=== PATIENT | male | born 1985 | race Caucasian/White ===

== ENCOUNTER 2016-06-10 15:26 | Emergency (ER) | payer MEDICARE, MEDICAID ==
--- NOTE | 2016-06-10 15:51 | EDDOCDS ---
Physician Documentation [facility] Name: Constantine Arce Age: 30 yrs Sex: Male : 1985 Arrival Date: 06/10/2016 Time: 15:26 Bed PD Private MD: Disposition: 06/10/16 15:40 Discharged to Home/Self Care. Impression: Dental caries, Jaw pain. - Condition is Stable. - Discharge Instructions: Dental Pain. - Prescriptions for Augmentin 875- 125 mg Oral Tablet - take 1 tablet by ORAL route every 12 hours for 10 days; 20 tablet. Ibuprofen 800 mg Oral Tablet - take 1 tablet by ORAL route every 8 hours As needed take with food; 30 tablet. - Medication Reconciliation, Local Pharmacy Hours, Dental Referral List form. - Follow up: Private Physician; When: Call to arrange an appointment; Reason: Recheck today's complaints. Follow up: Emergency Department; When: As needed; Reason: Fever > 102F, Trouble breathing, Worsening of conditions. - Problem is new. - Symptoms are unchanged. Historical: - Allergies: no known allergies; - Home Meds: 1. Adderall XR 30 mg Oral cp24 1 cap once daily 2. gabapentin 300 mg Oral tab four times a day 3. Methadone Oral once daily - PMHx: ADHD; - PSHx: none; - Social history: Smoking status: Patient states former smoker of tobacco. No barriers to communication noted, The patient speaks fluent Australian, Speaks appropriately for age. - Family history: Not pertinent. - : The pt / caregiver states he / she is not on anticoagulants. Home medication list is obtained from the patient. - Exposure Risk Screening:: None identified. Vital Signs: 06/10 15:28 BP 149 / 64; Pulse 60; Resp 16; Temp 98.3(O); Pulse Ox 97% on R/A; Weight 74.84 kg / lr2 164.99 lbs (R); Height 5 ft. 11 in. (180.34 cm) (R); Pain 6/10; 15:28 Body Mass Index 23.01 (74.84 kg, 180.34 cm) lr2 MDM: 15:44 [facility] Payment Agreement was scanned into [employer] and attached to record. jp5 15:44 Financial registration complete. jp5 Signatures: Lucas Ho RN RN mlb1 Becki Adams,RN RN jo3 Fidel Gallardo, PASamC PAVel Patel jp5 The chart was reviewed and I authenticate all verbal orders and agree with the evaluation and treatment provided.Attachments: 15:44 [facility] Payment Agreement jp5 MTDD
--- NOTE | 2016-06-10 15:51 | EDDOCDS ---
Nurse's Notes [facility] Name: Constantine Arce Age: 30 yrs Sex: Male : 1985 Arrival Date: 06/10/2016 Time: 15:26 Bed PD Private MD: Diagnosis: Dental caries;Jaw pain Presentation: 06/10 15:29 Presenting complaint: Patient states: Right jaw pain radiating to right ear began a mlb1 week ago. Adult Sepsis Screening: The patient does not have new or worsening altered mentation. Patient's respiratory rate is less than 22. Systolic blood pressure is greater than 100. Patient has a qSOFA score of 0- Negative Sepsis Screen. Suicide/Homicide risk assessment- the patient denies having any suicidal and/or homicidal ideations and does not present with any other emotional, behavioral or mental health complaints. Status: Patient is not a in shop service technician or dependent. Transition of care: patient was not received from another setting of care. 15:29 Acuity: TEE Level 4 mlb1 15:29 Method Of Arrival: Walkin/Carried/Asstd mlb1 Triage Assessment: 15:31 General: Appears in no apparent distress, Behavior is appropriate for age, cooperative. mlb1 Pain: Location: right ear and right jaw Pain currently is 7 out of 10 on a pain scale. HIV screening NA for this visit Offered previously. Historical: - Allergies: no known allergies; - Home Meds: 1. Adderall XR 30 mg Oral cp24 1 cap once daily 2. gabapentin 300 mg Oral tab four times a day 3. Methadone Oral once daily - PMHx: ADHD; - PSHx: none; - Social history: Smoking status: Patient states former smoker of tobacco. No barriers to communication noted, The patient speaks fluent Turkish, Speaks appropriately for age. - Family history: Not pertinent. - : The pt / caregiver states he / she is not on anticoagulants. Home medication list is obtained from the patient. - Exposure Risk Screening:: None identified. Screenin:49 Screening information is obtained from the patient. Fall risk: No risks identified. jo3 Assistance ADL's: requires no assistance with activities of daily living. Abuse/DV Screen: The patient / caregiver reports he/she is: not in a situation that causes fear, pain or injury. Nutritional screening: No deficits noted. Advance Directives: There is no active DNR order. home support is adequate. Assessment: 15:49 General: Appears in no apparent distress, comfortable, Behavior is appropriate for age, jo3 cooperative. General: Pt disclosed to this typewriter assembly and parts inspector that he is on methadone at a clinic and does not want to get in trouble and asked that Ultram be cancelled. Advised provider . Neurological: No deficits noted. Level of Consciousness is awake, alert, Oriented to person, place, time. Cardiovascular: No deficits noted. Respiratory: No deficits noted. Airway is patent Respiratory effort is even, unlabored. Derm: Skin is pink, warm & dry. Vital Signs: 15:28 BP 149 / 64; Pulse 60; Resp 16; Temp 98.3(O); Pulse Ox 97% on R/A; Weight 74.84 kg (R); lr2 Height 5 ft. 11 in. (180.34 cm) (R); Pain 6/10; 15:28 Body Mass Index 23.01 (74.84 kg, 180.34 cm) lr2 Vitals: 15:28 Log In Time: June 10, 2016 at 15:26. lr2 ED Course: 15:28 Patient visited by Aide Heath. lr2 15:28 Patient moved to Waiting lr2 15:28 Patient moved to Pre RCE lr2 15:29 Patient visited by Lucas Ho RN. mlb1 15:30 Triage Initiated mlb1 15:33 Fidel Gallardo [facility]-C [facility]. ar2 15:33 Urban Mendoza MD is Attending Physician. ar2 15:34 Patient visited by Fidel Gallardo PA-C. ar2 15:34 Patient moved to jb5 15:44 [facility] Payment Agreement was scanned into [employer] and attached to record. jp5 15:46 Patient name changed from Constantine\S\R\S\Cranker\S\ to Constantine\S\Julien\S\Cranker. EDMS 15:49 The patient / caregiver is instructed regarding the plan of care and ED course. jo3 15:49 No IV's were initiated during this patient's visit. No procedures done that require jo3 assistance. Order Results: There are currently no results for this order. Outcome: 15:40 Discharge ordered by Provider. ar2 15:49 Discharge Assessment: Patient awake, alert and oriented x 3. No cognitive and/or jo3 functional deficits noted. Patient verbalized understanding of disposition instructions. patient administered narcotics - no. The following High Risk Discharge criteria are identified: None. Discharged to home ambulatory. Condition: stable. Discharge instructions given to patient, Instructed on discharge instructions, follow up and referral plans. medication usage, Demonstrated understanding of instructions, medications, Pt was receptive of discharge instructions/ teaching. Prescriptions given X 2. No special radiology studies were completed. Property sent home with patient. 15:51 Patient left the ED. jo3 Signatures: Dispatcher [employer] EDMS Lucas oH RN RN mlb1 Zunilda Iniguez, CAMERA REPAIR TECHNICIAN CAMERA REPAIR TECHNICIAN jb5 Becki AdamsRN RN jo3 Fidel Gallardo PA-C PA-C ar2 Price, Jennalee jp5 Ross, Laura lr2 Corrections: (The following items were deleted from the chart) 15:32 15:28 BP 149 / ???; Pulse 64bpm; Resp 16bpm; Pulse Ox 97% RA; Temp 98.3F Oral; 74.84 kg lr2 Reported; Height 5 ft. 11 in. Reported; BMI: 23.0; Pain 6/10; lr2 MTDD
--- NOTE | 2016-06-12 16:52 | EDDOCDS ---
Physician Documentation [facility] Name: Constantine Arce Age: 30 yrs Sex: Male : 1985 Arrival Date: 06/10/2016 Time: 15:26 Bed PD Private MD: Disposition: 06/10/16 15:40 Discharged to Home/Self Care. Impression: Dental caries, Jaw pain. - Condition is Stable. - Discharge Instructions: Dental Pain. - Prescriptions for Augmentin 875- 125 mg Oral Tablet - take 1 tablet by ORAL route every 12 hours for 10 days; 20 tablet. Ibuprofen 800 mg Oral Tablet - take 1 tablet by ORAL route every 8 hours As needed take with food; 30 tablet. - Medication Reconciliation, Local Pharmacy Hours, Dental Referral List form. - Follow up: Private Physician; When: Call to arrange an appointment; Reason: Recheck today's complaints. Follow up: Emergency Department; When: As needed; Reason: Fever > 102F, Trouble breathing, Worsening of conditions. - Problem is new. - Symptoms are unchanged. Historical: - Allergies: no known allergies; - Home Meds: 1. Adderall XR 30 mg Oral cp24 1 cap once daily 2. gabapentin 300 mg Oral tab four times a day 3. Methadone Oral once daily - PMHx: ADHD; - PSHx: none; - Social history: Smoking status: Patient states former smoker of tobacco. No barriers to communication noted, The patient speaks fluent Samoan, Speaks appropriately for age. - Family history: Not pertinent. - : The pt / caregiver states he / she is not on anticoagulants. Home medication list is obtained from the patient. - Exposure Risk Screening:: None identified. Vital Signs: 06/10 15:28 BP 149 / 64; Pulse 60; Resp 16; Temp 98.3(O); Pulse Ox 97% on R/A; Weight 74.84 kg / lr2 164.99 lbs (R); Height 5 ft. 11 in. (180.34 cm) (R); Pain 6/10; 15:28 Body Mass Index 23.01 (74.84 kg, 180.34 cm) lr2 MDM: 15:44 [facility] Payment Agreement was scanned into [employer] and attached to record. jp5 15:44 Financial registration complete. jp5 06/11 10:24 T-Sheet-- Draft Copy was scanned into [employer] and attached to record. gb Signatures: Karina Childers, Reg Reg gb Lucas Ho RN RN mlb1 Becki Adams RN RN jo3 Fidel Gallardo, Vel Gamez PA-C jp5 The chart was reviewed and I authenticate all verbal orders and agree with the evaluation and treatment provided.Attachments: 06/10 15:44 [facility] Payment Agreement jp5 06/11 10:24 T-Sheet-- Draft Copy gb Chart Complete MTDD
--- NOTE | 2016-06-12 16:52 | EDDOCDS ---
Nurse's Notes [facility] Name: Constantine Arce Age: 30 yrs Sex: Male : 1985 Arrival Date: 06/10/2016 Time: 15:26 Bed PD Private MD: Diagnosis: Dental caries;Jaw pain Presentation: 06/10 15:29 Presenting complaint: Patient states: Right jaw pain radiating to right ear began a mlb1 week ago. Adult Sepsis Screening: The patient does not have new or worsening altered mentation. Patient's respiratory rate is less than 22. Systolic blood pressure is greater than 100. Patient has a qSOFA score of 0- Negative Sepsis Screen. Suicide/Homicide risk assessment- the patient denies having any suicidal and/or homicidal ideations and does not present with any other emotional, behavioral or mental health complaints. Status: Patient is not a mobile service rv technician or dependent. Transition of care: patient was not received from another setting of care. 15:29 Acuity: TEE Level 4 mlb1 15:29 Method Of Arrival: Walkin/Carried/Asstd mlb1 Triage Assessment: 15:31 General: Appears in no apparent distress, Behavior is appropriate for age, cooperative. mlb1 Pain: Location: right ear and right jaw Pain currently is 7 out of 10 on a pain scale. HIV screening NA for this visit Offered previously. Historical: - Allergies: no known allergies; - Home Meds: 1. Adderall XR 30 mg Oral cp24 1 cap once daily 2. gabapentin 300 mg Oral tab four times a day 3. Methadone Oral once daily - PMHx: ADHD; - PSHx: none; - Social history: Smoking status: Patient states former smoker of tobacco. No barriers to communication noted, The patient speaks fluent Albanian, Speaks appropriately for age. - Family history: Not pertinent. - : The pt / caregiver states he / she is not on anticoagulants. Home medication list is obtained from the patient. - Exposure Risk Screening:: None identified. Screenin:49 Screening information is obtained from the patient. Fall risk: No risks identified. jo3 Assistance ADL's: requires no assistance with activities of daily living. Abuse/DV Screen: The patient / caregiver reports he/she is: not in a situation that causes fear, pain or injury. Nutritional screening: No deficits noted. Advance Directives: There is no active DNR order. home support is adequate. Assessment: 15:49 General: Appears in no apparent distress, comfortable, Behavior is appropriate for age, jo3 cooperative. General: Pt disclosed to this freelance writer that he is on methadone at a clinic and does not want to get in trouble and asked that Ultram be cancelled. Advised provider . Neurological: No deficits noted. Level of Consciousness is awake, alert, Oriented to person, place, time. Cardiovascular: No deficits noted. Respiratory: No deficits noted. Airway is patent Respiratory effort is even, unlabored. Derm: Skin is pink, warm & dry. Vital Signs: 15:28 BP 149 / 64; Pulse 60; Resp 16; Temp 98.3(O); Pulse Ox 97% on R/A; Weight 74.84 kg (R); lr2 Height 5 ft. 11 in. (180.34 cm) (R); Pain 6/10; 15:28 Body Mass Index 23.01 (74.84 kg, 180.34 cm) lr2 Vitals: 15:28 Log In Time: June 10, 2016 at 15:26. lr2 ED Course: 15:28 Patient visited by Aide Heath. lr2 15:28 Patient moved to Waiting lr2 15:28 Patient moved to Pre RCE lr2 15:29 Patient visited by Lucas Ho RN. mlb1 15:30 Triage Initiated mlb1 15:33 [facility] ar2 15:33 Urban Mendoza MD is Attending Physician. ar2 15:34 Patient visited by Fidel Gallardo PA-C. ar2 15:34 Patient moved to PD jb5 15:44 [facility] Payment Agreement was scanned into [employer] and attached to record. jp5 15:46 Patient name changed from Constantine\S\R\S\Cranker\S\ to Constantine\S\Julien\S\Cranker. EDMS 15:49 The patient / caregiver is instructed regarding the plan of care and ED course. jo3 15:49 No IV's were initiated during this patient's visit. No procedures done that require jo3 assistance. 06/11 10:24 T-Sheet-- Draft Copy was scanned into [employer] and attached to record. gb Order Results: There are currently no results for this order. Outcome: 06/10 15:40 Discharge ordered by Provider. ar2 15:49 Discharge Assessment: Patient awake, alert and oriented x 3. No cognitive and/or jo3 functional deficits noted. Patient verbalized understanding of disposition instructions. patient administered narcotics - no. The following High Risk Discharge criteria are identified: None. Discharged to home ambulatory. Condition: stable. Discharge instructions given to patient, Instructed on discharge instructions, follow up and referral plans. medication usage, Demonstrated understanding of instructions, medications, Pt was receptive of discharge instructions/ teaching. Prescriptions given X 2. No special radiology studies were completed. Property sent home with patient. 15:51 Patient left the ED. jo3 Signatures: Dispatcher [employer] EDMS Karina Childers, Reg Reg paula Ho, Lucas Major RN RN mlb1 Zunilda Iniguez, CORRECTIONS SERGEANT CORRECTIONS SERGEANT jb5 Becki Adams RN RN jo3 Fidel Gallardo, TONO PASiri ar2 Vel Sanchez Laura lr2 Corrections: (The following items were deleted from the chart) 15:32 15:28 BP 149 / ???; Pulse 64bpm; Resp 16bpm; Pulse Ox 97% RA; Temp 98.3F Oral; 74.84 kg lr2 Reported; Height 5 ft. 11 in. Reported; BMI: 23.0; Pain 6/10; lr2 Chart Complete MTDD
--- NOTE | 2016-06-12 16:52 | EDDOCDS ---
Physician Documentation [facility] Name: Constantine Arce Age: 30 yrs Sex: Male : 1985 Arrival Date: 06/10/2016 Time: 15:26 Bed PD Private MD: Disposition: 06/10/16 15:40 Discharged to Home/Self Care. Impression: Dental caries, Jaw pain. - Condition is Stable. - Discharge Instructions: Dental Pain. - Prescriptions for Augmentin 875- 125 mg Oral Tablet - take 1 tablet by ORAL route every 12 hours for 10 days; 20 tablet. Ibuprofen 800 mg Oral Tablet - take 1 tablet by ORAL route every 8 hours As needed take with food; 30 tablet. - Medication Reconciliation, Local Pharmacy Hours, Dental Referral List form. - Follow up: Private Physician; When: Call to arrange an appointment; Reason: Recheck today's complaints. Follow up: Emergency Department; When: As needed; Reason: Fever > 102F, Trouble breathing, Worsening of conditions. - Problem is new. - Symptoms are unchanged. Historical: - Allergies: no known allergies; - Home Meds: 1. Adderall XR 30 mg Oral cp24 1 cap once daily 2. gabapentin 300 mg Oral tab four times a day 3. Methadone Oral once daily - PMHx: ADHD; - PSHx: none; - Social history: Smoking status: Patient states former smoker of tobacco. No barriers to communication noted, The patient speaks fluent [place], Speaks appropriately for age. - Family history: Not pertinent. - : The pt / caregiver states he / she is not on anticoagulants. Home medication list is obtained from the patient. - Exposure Risk Screening:: None identified. Vital Signs: 06/10 15:28 BP 149 / 64; Pulse 60; Resp 16; Temp 98.3(O); Pulse Ox 97% on R/A; Weight 74.84 kg / lr2 164.99 lbs (R); Height 5 ft. 11 in. (180.34 cm) (R); Pain 6/10; 15:28 Body Mass Index 23.01 (74.84 kg, 180.34 cm) lr2 MDM: 15:44 [facility] Payment Agreement was scanned into [employer] and attached to record. jp5 15:44 Financial registration complete. jp5 06/11 10:24 T-Sheet-- Draft Copy was scanned into [employer] and attached to record. gb Signatures: Karina Childers, Reg Reg gb Lucas Ho RN RN mlb1 Becki Adams RN RN jo3 Fidel Gallardo, Vel Gamez PA-C jp5 The chart was reviewed and I authenticate all verbal orders and agree with the evaluation and treatment provided.Attachments: 06/10 15:44 [facility] Payment Agreement jp5 06/11 10:24 T-Sheet-- Draft Copy gb Chart Complete MTDD
== END 2016-06-10 15:51 | disposition home or self-care (01) ==
LOC: M ED 15:26
DX: K02.9 Dental caries, unspecified (principal); K08.9 Disorder of teeth and supporting structures, unspecified; F90.9 Attention-deficit hyperactivity disorder, unspecified type; Z87.891 Personal history of nicotine dependence; Z79.899 Other long term (current) drug therapy

== ENCOUNTER 2018-12-18 14:04 | Emergency (ER) | payer MEDICARE, MEDICAID ==
[~2018-12-18] VITALS: Ht 180.3 cm; Wt 72.7 kg
[2018-12-18 14:05] VITALS: BP 112/70
== END 2018-12-18 16:49 | disposition home or self-care (01) ==
LOC: M ED 14:04
DX: S10.91XA Abrasion of unspecified part of neck, initial encounter (principal); R23.4 Changes in skin texture; X58.XXXA Exposure to other specified factors, initial encounter; Y92.9 Unspecified place or not applicable; Y93.9 Activity, unspecified; Y99.9 Unspecified external cause status; F41.9 Anxiety disorder, unspecified; F32.9 Major depressive disorder, single episode, unspecified

== ENCOUNTER → 2019-09-05 | Outpatient (CLI) | payer MEDICARE, MEDICAID | LOC: M LABSMTC 13:19 | PROVIDERS: ATTEND Family Medicine | DX: Z20.828 Contact with and (suspected) exposure to other viral communicable diseases (principal) | CPT/HCPCS: C9803; U0003 ==

== ENCOUNTER 2020-01-05 23:31 | Emergency (ER) | payer MEDICARE, MEDICAID ==
[~2020-01-05] VITALS: Ht 180.3 cm; Wt 78.2 kg
[2020-01-05] MEDS ORDERED: ADDE30TA (23:41)
[2020-01-05] MEDS ORDERED: BUPR1FIL6 (23:41)
[2020-01-05] MEDS ORDERED: CLON1TAB8 (23:41)
[2020-01-06] MEDS ORDERED: VANCOMYCIN HCL 1,500 MG in IV FLUID PLACE HOLDER 1 EA IV ONE (00:15)
[2020-01-06] MEDS ORDERED: VANCOMYCIN HCL 750 MG, VIAL MATE ADAPTER 1 EACH in D5W 250 ML IV ONE ×2 (00:15→01:15)
[2020-01-06 00:51] LABS: BASO % 0.2 % (0.0-1.0); HEMATOCRIT 39.2 % (42.0-52.0); HEMOGLOBIN 13.6 g/dl (13.5-17.5); LYMPH # 0.8 10^3/uL (1.5-5.0); LYMPH % 4.4 % (24.0-44.0); MEAN CORPUSCULAR HEMOGLOBIN 31.6 pg (27.0-33.0); MEAN CORPUSCULAR HGB CONC 34.7 g/dl (32.0-36.5); MONO # 1.2 10^3/uL (0.0-0.8); MONO % 6.8 % (0.0-5.0); NEUTROPHILS # 15.6 10^3/uL (1.5-8.5); NEUTROPHILS % 88.1 % (36.0-66.0); PLATELET COUNT, AUTOMATED 232 10^3/uL (150-450); RED BLOOD COUNT 4.31 10^6/uL (4.30-6.10); WHITE BLOOD COUNT 17.7 10^3/uL (4.0-10.0)
[2020-01-06] MEDS ORDERED: KETOROLAC 30 MG/ML 1ML VIAL IV ONE (01:00)
[2020-01-06 01:09] LABS: ERYTHROCYTE SEDIMENTATION RATE 32 mm/hr (0-15)
[2020-01-06] MEDS ORDERED: BACT800T5 PO (01:43)
[2020-01-06] MEDS ORDERED: NAPR-837 PO (01:43)
[2020-01-06 03:49] VITALS: BP 148/84
== END 2020-01-06 03:51 | disposition home or self-care (01) ==
LOC: M ED 23:31
DX: L03.317 Cellulitis of buttock (principal); Z79.899 Other long term (current) drug therapy; Z79.891 Long term (current) use of opiate analgesic
CPT/HCPCS: 80047; 83605; 85025; 85652; 86140; 87040; 87077; 87186; 96365; 96366; 96375; 99283; J1885; J3370

== ENCOUNTER 2020-01-07 22:09 | Emergency (ER) | payer MEDICARE, MEDICAID ==
[~2020-01-07] VITALS: Ht 180.3 cm; Wt 75.8 kg
[~2020-01-07 22:09] MED LIST: ADDE30TA; BACT800T5 PO; BUPR1FIL6; CLON1TAB8; NAPR-837 PO
[2020-01-07] MEDS ORDERED: LORazepam 2 MG/ML VIAL IV STA (23:02)
[2020-01-07] MEDS ORDERED: NS 1,000 ML IV ONE (23:15)
[2020-01-07 23:22] LABS: BASO # 0.1 10^3/uL (0.0-0.2); BASO % 0.3 % (0.0-1.0); EOS # 0.2 10^3/uL (0.0-0.5); HEMATOCRIT 35.1 % (42.0-52.0); HEMOGLOBIN 11.9 g/dl (13.5-17.5); LYMPH # 1.4 10^3/uL (1.5-5.0); LYMPH % 6.8 % (24.0-44.0); MEAN CORPUSCULAR HEMOGLOBIN 30.7 pg (27.0-33.0); MEAN CORPUSCULAR HGB CONC 33.9 g/dl (32.0-36.5); MEAN CORPUSCULAR VOLUME 90.5 fl (80.0-96.0); MONO # 1.5 10^3/uL (0.0-0.8); MONO % 7.2 % (0.0-5.0); NEUTROPHILS # 17.7 10^3/uL (1.5-8.5); NEUTROPHILS % 84.2 % (36.0-66.0); PLATELET COUNT, AUTOMATED 252 10^3/uL (150-450); RED BLOOD COUNT 3.88 10^6/uL (4.30-6.10)
[2020-01-07] MEDS ORDERED: LORazepam 2 MG/ML VIAL As Ordered ONE (23:22)
[2020-01-07 23:39] LABS: ERYTHROCYTE SEDIMENTATION RATE 58 mm/hr (0-15)
[2020-01-07 23:53] LABS: BLOOD UREA NITROGEN 14 MG/DL (7-18); CALCIUM LEVEL 7.9 MG/DL (8.5-10.1); CARBON DIOXIDE LEVEL 28 MEQ/L (21-32); CHLORIDE LEVEL 106 MEQ/L (98-107); CREATININE FOR GFR 0.61 MG/DL (0.70-1.30); GLOMERULAR FILTRATION RATE > 60.0 (>60); GLUCOSE, FASTING 124 MG/DL (70-100); SODIUM LEVEL 140 MEQ/L (136-145)
[2020-01-08] MEDS ORDERED: DALBAVANCIN 1,500 MG in D5W 250 ML IV ONE (00:15)
[2020-01-08 01:24] VITALS: BP 118/68
== END 2020-01-08 01:26 | disposition home or self-care (01) ==
LOC: M ED 22:09
DX: L03.115 Cellulitis of right lower limb (principal); L03.317 Cellulitis of buttock; Z79.891 Long term (current) use of opiate analgesic; F17.210 Nicotine dependence, cigarettes, uncomplicated
CPT/HCPCS: 80048; 83605; 85025; 85652; 86140; 87040; 96361; 96365; 96375; 99284; J0875; J2060

== ENCOUNTER 2020-06-29 20:26 | Emergency (ER) | payer MEDICARE, MEDICAID ==
[~2020-06-29] VITALS: Ht 180.3 cm; Wt 79.5 kg
[2020-06-29 20:50] LABS: HEMATOCRIT 43.6 % (42.0-52.0); HEMOGLOBIN 15.1 g/dl (13.5-17.5); MEAN CORPUSCULAR HEMOGLOBIN 30.8 pg (27.0-33.0); MEAN CORPUSCULAR HGB CONC 34.6 g/dl (32.0-36.5); MEAN CORPUSCULAR VOLUME 88.8 fl (80.0-96.0); PLATELET COUNT, AUTOMATED 316 10^3/uL (150-450); RED BLOOD COUNT 4.91 10^6/uL (4.30-6.10); WHITE BLOOD COUNT 8.1 10^3/uL (4.0-10.0)
[2020-06-29 21:32] LABS: ACETAMINOPHEN LEVEL < 2.0 UG/ML (10.0-30.0); ALBUMIN 4.4 GM/DL (3.2-5.2); ALT/SGPT 29 U/L (12-78); BILIRUBIN,DIRECT 0.4 MG/DL (0.0-0.2); BILIRUBIN,TOTAL 2.1 MG/DL (0.2-1.0); BLOOD UREA NITROGEN 23 MG/DL (7-18); CALCIUM LEVEL 9.2 MG/DL (8.5-10.1); CARBON DIOXIDE LEVEL 27 MEQ/L (21-32); CHLORIDE LEVEL 103 MEQ/L (98-107); CREATININE FOR GFR 0.95 MG/DL (0.70-1.30); ETHYL ALCOHOL (ETHANOL) < 0.003 % (0.000-0.010); GLOMERULAR FILTRATION RATE > 60.0 (>60); GLUCOSE, FASTING 100 MG/DL (70-100); POTASSIUM SERUM 3.7 MEQ/L (3.5-5.1); SALICYLATE LEVEL < 1.7 MG/DL (5.0-30.0); SODIUM LEVEL 138 MEQ/L (136-145); TOTAL PROTEIN 7.7 GM/DL (6.4-8.2)
[2020-06-29 22:09] LABS: AMPHETAMINES LEVEL URINE POSITIVE (NEGATIVE); BARBITURATES URINE NEGATIVE (NEGATIVE); BENZODIAZEPINES URINE POSITIVE (NEGATIVE); CANNABINOIDS URINE POSITIVE (NEGATIVE); COCAINE METABOLITE URINE NEGATIVE (NEGATIVE); METHADONE URINE NEGATIVE (NEGATIVE); OPIATES URINE NEGATIVE (NEGATIVE); PHENCYCLIDINE URINE NEGATIVE (NEGATIVE)
[2020-06-29 22:43] VITALS: BP 133/75
== END 2020-06-29 22:45 | disposition home or self-care (01) ==
LOC: M ED 20:26
DX: Z04.6 Encounter for general psychiatric examination, requested by authority (principal); F33.9 Major depressive disorder, recurrent, unspecified; F41.9 Anxiety disorder, unspecified; F90.9 Attention-deficit hyperactivity disorder, unspecified type; F15.10 Other stimulant abuse, uncomplicated; Z79.899 Other long term (current) drug therapy

== ENCOUNTER → 2022-12-16 | Outpatient (CLI) | payer MEDICARE, MEDICAID ==
[~2022-12-16] MED LIST changes: +BUPR1FIL37; -BUPR1FIL6
== END ==
LOC: M PLALAB 15:14
PROVIDERS: ATTEND Registered Nurse Psychiatric/Mental Health
DX: F11.21 Opioid dependence, in remission (principal)